=== PATIENT | male | born 1995 | race Hispanic/Latino ===

== ENCOUNTER 2019-04-07 17:07 | Emergency (ER) | payer SELFPAY ==
[~2019-04-07] VITALS: Ht 165.1 cm; Wt 80.7 kg
--- NOTE | 2019-04-07 19:47 | EKG ---
[facility] [address] [place], [place] [address] Signed Normal sinus rhythm Normal ECG No previous ECGs available Confirmed by JUSTO ENGLISH DO ([id number]) on 04/07/2019 7:46:57 PM Electronically Signed By: JUSTO ENGLISH DO 04/07/19 1947 PATIENT NAME: MAYLIN LOPEZLESLEE Electrocardiogram DATE OF : 89 PHYSICIAN: JUSTO ENGLSIH DO REPORT #: [id number] REPORT IS CONFIDENTIAL AND NOT TO BE RELEASED WITHOUT AUTHORIZATION
== END 2019-04-07 19:59 | disposition home or self-care (01) ==
LOC: ED 17:07
DX: R07.9 Chest pain, unspecified (principal)
CPT/HCPCS: 36415; 71045; 80053; 83735; 84484; 85025; 93005; 93010; 99285-25